=== PATIENT | female | born 1980 | race Caucasian/White ===

== ENCOUNTER 2017-10-13 14:48 | Inpatient (IN) | payer OTHER ==
[2017-10-13 15:28] VITALS: BMI 39.6
[2017-10-13] MEDS ORDERED: CITRIC ACID/SODIUM CITRATE 30 ML UNIT-DOSE CUP PO ONE (16:06)
[2017-10-13] MEDS: ELECTROLYTE-148 SOLN 1,000 ML IV SCH (16:15)
[2017-10-13] MEDS ORDERED: ELECTROLYTE-148 SOLN 1,000 ML IV SCH (16:15)
[2017-10-13 17:40] LABS: BASO % 0.4 % (0-2.0); EOS % 2.4 % (0-4.5); HEMATOCRIT 37.7 % (32.4-45.2); HEMOGLOBIN 12.9 GM/dL (10.7-15.3); LYMPH % 21.6 % (8-40); MCH 31.5 pg (25.7-33.7); MCHC 34.2 g/dl (32.0-36.0); MEAN PLT VOLUME 8.1 fl (7.5-11.1); MONO % 8.1 % (3.8-10.2); NEUT % 67.5 % (42.8-82.8); PLATELET COUNT 263 K/MM3 (134-434); RBC 4.09 M/mm3 (3.60-5.2); RDW 14.6 % (11.6-15.6); WHITE BLOOD COUNT 8.3 K/mm3 (4.0-10.0)
[2017-10-13 17:58] LABS: INR 0.96 (0.82-1.09); PROTHROMBIN TIME (PATIENT) 10.8 SEC (9.98-11.88)
[2017-10-13 18:00] LABS: ACTIVATED PTT 29.2 SECONDS (26.9-34.4)
[2017-10-13 18:10] LABS: ANION GAP 15 (8-16); BLOOD UREA NITROGEN 9 mg/dL (7-18); CALCIUM 8.9 mg/dL (8.5-10.1); CHLORIDE 104 mmol/L (98-107); CO2 20 mmol/L (21-32); CREATININE 0.5 mg/dL (0.55-1.02); GLUCOSE,RANDOM 86 mg/dL (74-106); POTASSIUM 4.4 mmol/L (3.5-5.1); SODIUM 139 mmol/L (136-145)
[2017-10-13] MEDS ORDERED: ceFAZolin SODIUM 1 GM VIAL ONE (18:27)
--- NOTE | 2017-10-13 18:27 | HP ---
Past Medical History - Primary Care Physician PCP:: Cassandra Hanson - Admission Chief Complaint: Previous Section. abdominal pain History of Present Illness: 37 yo EDC 11/05/17 EGA with c/o previous Section History Source: Patient - Past Medical History ...: 7 ...Para: 3 ...Term: 3 ...: 0 ...Spon : 3 ...Induced : 0 ...Multiple Gestation: 0 ...LMP: 01/28/17 ...EDC by Dates: 11/05/17 - Past Surgical History Past Surgical History: Yes: Hx Myomectomy: No Hx Transabdominal Cerclage: No - Smoking History Smoking history: Never smoked Have you smoked in the past 12 months: No - Alcohol/Substance Use Hx Alcohol Use: No History of Substance Use: reports: None - Social History Usual Living Arrangement: Yes: With Spouse History of Recent Travel: No Home Medications - Allergies Allergies/Adverse Reactions: Allergies Allergy/AdvReac Type Severity Reaction Status Date / Time No Known Allergies Allergy Verified 10/13/17 15:13 - Home Medications Home Medications: Ambulatory Orders Pnv No.95/Ferrous Fum/Folic AC [ Vitamin Tablet] 1 each PO DAILY Glyburide/Metformin HCl [Glyburide-Metformin 2.5-500 mg] 5 mg PO HS 10/13/17 Review of Systems - Review of Systems Constitutional: reports: No Symptoms Eyes: reports: No Symptoms HENT: reports: No Symptoms Neck: reports: No Symptoms Cardiovascular: reports: No Symptoms Respiratory: reports: No Symptoms Gastrointestinal: reports: Abdominal Pain Genitourinary: reports: No Symptoms Breasts: reports: No Symptoms Reported Musculoskeletal: reports: No Symptoms Integumentary: reports: No Symptoms Neurological: reports: No Symptoms Endocrine: reports: No Symptoms Hematology/Lymphatic: reports: No Symptoms Psychiatric: reports: No Symptoms Physical Exam - Maternity Vital Signs: Vital Signs Temperature 98.0 F 10/13/17 15:15 Pulse Rate 96 H 10/13/17 15:15 Respiratory Rate 20 10/13/17 15:15 Blood Pressure 117/74 10/13/17 15:15 O2 Sat by Pulse Oximetry (%) Constitutional: Yes: Well Nourished, No Distress Neck: Yes: WNL Cardiovascular: Yes: WNL Lungs: Clear to auscultation Breast(s): Yes: WNL - Abdominal Exam/OB Number of Fetuses: Single Presentation: Vertex Contractions: Yes Monitor Mode: External Category: I Accelerations: Non-Uniform Decelerations: None - Vaginal Exam/OB Vaginal Bleediing: No Dilatation (cm): 2 cm Effacement (%): 80 Amniotic Membrane Status: Intact Presentation: Vertex/Position - Physical Exam Musculoskeletal: Yes: WNL Extremities: Yes: WNL Edema: No Psychiatric: Yes: WNL, Alert, Oriented - Labs Lab Results: CBC, BMP 10/13/17 17:05 Hemorrhage Risk Assessment - Risk Factors Medium Risk Factors: Yes: Prior , uterine surgery,or multiple laparotomies Risk Score: 1 Risk Level: Medium Risk Problem List - Problems (1) Previous delivery affecting , antepartum Code(s): O34.219 - MATERNAL CARE FOR UNSP TYPE SCAR FROM PREVIOUS DEL (2) labor in third trimester Code(s): O60.03 - LABOR WITHOUT DELIVERY, THIRD TRIMESTER Qualifiers: labor delivery status: without delivery Qualified Code(s): O60.03 - labor without delivery, third trimester Assessment/Plan IUP at 36.6 weeks previous Section Abdominal pain Plan IV hydration Admit for observation
[2017-10-13] MEDS: CEFAZOLIN 2 GM/D5W 2 GM/50 ML ML IVPB SCH (18:30)
[2017-10-13 19:41] LABS: URINE APPEARANCE CLEAR; URINE BILIRUBIN NEGATIVE (<2.0 mg/dL); URINE COLOR YELLOW; URINE GLUCOSE (UA) NEGATIVE (NEGATIVE); URINE KETONE 1+ (NEGATIVE); URINE LEUK ESTERASE NEGATIVE (NEGATIVE); URINE NITRITE NEGATIVE (NEGATIVE); URINE PROTEIN NEGATIVE (NEGATIVE); URINE UROBILINOGEN NEGATIVE mg/dL (0.2-1.0)
[2017-10-13 20:13] LABS: EPI CELLS RARE /HPF (FEW); URINE MUCUS FEW
[2017-10-13] MEDS ORDERED: ELECTROLYTE-148 SOLN 1,000 ML IV ONE (20:15)
[2017-10-14] MEDS ORDERED: TERBUTALINE SULFATE 1 MG/1 ML VIAL SQ ONE (00:33)
[2017-10-14] MEDS: CEFAZOLIN 2 GM/D5W 2 GM/50 ML ML IVPB SCH ×3 (02:26→17:55)
[2017-10-14] MEDS ORDERED: ceFAZolin SODIUM 1 GM VIAL ONE (02:28)
[2017-10-14] MEDS ORDERED: ELECTROLYTE-148 SOLN 1,000 ML IV ONE (06:00)
[2017-10-14] MEDS ORDERED: D5-LR+20 MEQ KCL - 20 MEQ/1,000 ML INFUS.BAG IV ONE (06:00)
--- NOTE | 2017-10-14 07:45 | PN ---
Ante-Partal Exam - Subjective Subjective: Pt with pain an desires CS + contractions at 37 weeks Vital Signs: Vital Signs Temperature 97.4 F L 10/14/17 05:00 Pulse Rate 98 H 10/14/17 05:00 Respiratory Rate 18 10/14/17 05:00 Blood Pressure 100/58 10/14/17 05:00 O2 Sat by Pulse Oximetry (%) Bleeding: No Headache: No Visual changes: No Right upper quadrant pain: No - Contractions Contractions: Yes Regularity: Irregular Intensity: Moderate Monitor Mode: External - Exam during Labor Variability: Moderate Heart Rate Location: [facility] Category: I Monitor Accelerations: Present Monitor Decelerations: None Exam: Vaginal Dilatation (cm): 2 Effacement (%): 80 Amniotic Membrane Status: Intact Presentation: Vertex Station: -1 - Intrapartum Hemorrhage Risk Risk Score: 1 Risk Level: Medium Risk - Assessment/Plan Assessment/Plan: Active lLabor at 37 week Previious section Plan Repeat CS
[2017-10-14] MEDS ORDERED: OXYTOCIN 20 UNITS in 0.9% NS 20 UNIT/1,000 ML INFUS.BAG IV ONE (07:50)
[2017-10-14] MEDS ORDERED: morphine SULFATE/Preservative Free 0.5 MG/ML (1cc Syringe) ONE (07:54)
[2017-10-14] MEDS ORDERED: BUPIVACAINE 0.75% IN DEXTROSE/PF 2ML AMPULE NR ONE (07:55)
[2017-10-14] MEDS ORDERED: OXYTOCIN 10 UNITS/ML VIAL ONE (08:34)
[2017-10-14] MEDS ORDERED: KETOROLAC TROMETHAMINE 30 MG/1 ML VIAL ONE (08:50)
[2017-10-14] MEDS ORDERED: IBUPROFEN 800 MG/8 ML IJ IVPB PRN (09:17)
[2017-10-14] MEDS ORDERED: METHYLERGONOVINE MALEATE 0.2 MG/1 ML AMP IM PRN (09:17)
[2017-10-14] MEDS ORDERED: OXYTOCIN 20 UNITS in 0.9% NS 20 UNIT/1,000 ML INFUS.BAG IV SCH (09:30)
[2017-10-14] MEDS ORDERED: ONDANSETRON 4 MG/2 ML VIAL IVPUSH PRN (09:33)
[2017-10-14 09:53] LABS: VENOUS PC02 64.1 mmHg (38-52); VENOUS PH 7.24 (7.32-7.42)
[2017-10-14 09:54] LABS: VENOUS PO2 10.5 mmHg (28-48)
[2017-10-14 09:57] LABS: ARTERIAL BLD GAS O2 SATURATION 44.3 % (90-98.9); ARTERIAL BLOOD GAS BASE EXCESS -1.8 meq/l (-2-2); ARTERIAL BLOOD GAS PCO2 49.5 mmHg (35-45); ARTERIAL BLOOD GAS pH 7.32 (7.35-7.45)
[2017-10-14 10:03] LABS: ARTERIAL BLOOD GAS PO2 22.8 mmHg (80-100)
[2017-10-14] MEDS ORDERED: TUBERCULIN PPD 5 TU/0.1ML SYRINGE (IN PATIENT USE ONLY) ID ONE (14:00)
--- NOTE | 2017-10-15 06:41 | OP ---
Operative Note - Note: Operative Date: 10/15/17 Pre-Operative Diagnosis: Previous CS. IUP at 37 week. Active labor Operation: Repeat low transverse Section Findings: live female infant Post-Operative Diagnosis: Same as Pre-op Surgeon: Cassandra Hanson Horticultural Specialty Grower: Rufus Welch Anesthesia: Spinal Estimated Blood Loss (mls): 600 Operative Report Dictated: Yes
--- NOTE | 2017-10-15 06:43 | PN ---
Progress Note (SOAP) - Subjective Chief Complaint: Pt doing well no flatus - Current Medications Current Medications: Active Medications Acetaminophen (Tylenol -) 650 mg PO Q4H PRN PRN Reason: FEVER Bisacodyl (Dulcolax Suppository -) 10 mg RC PRN PRN PRN Reason: CONSTIPATION Diphenhydramine HCl (Benadryl Injection -) 25 mg IVPUSH Q4H PRN PRN Reason: Pruritis Diphtheria/Tetanus/Acell Pertussis (Boostrix -) 0.5 ml IM .ONCE ONE Stop: 10/15/17 10:01 Parenteral Electrolytes (Plasma-Lyte 148 -) 1,000 mls @ 125 mls/hr IV ASDIR [facility] Last Admin: 10/13/17 16:15 Dose: 125 mls/hr Parenteral Electrolytes (Plasma-Lyte 148 -) 1,000 mls @ 125 mls/hr IV ASDIR [facility] Oxytocin/Sodium Chloride (Normal Saline+20 Units Oxytocin -) 20 unit in 1,000 mls @ 125 mls/hr IV ASDIR [facility] Last Admin: 10/14/17 13:45 Dose: 125 mls/hr Ibuprofen (Caldolor Injection -) 800 mg IVPB Q8H PRN PRN Reason: FEVER Last Admin: 10/15/17 05:36 Dose: 800 mg Ibuprofen (Motrin -) 600 mg PO Q4H PRN PRN Reason: PAIN LEVEL 1 - 3 Influenza Virus Vaccine Quadrival (Flulaval Quad [id number]) 60 mcg IM .ONCE ONE Stop: 10/15/17 10:01 Methylergonovine Maleate (Methergine Injection -) 0.2 mg IM Q4H PRN PRN Reason: Excessive Bleeding (L&D) Ondansetron HCl (Zofran Injection) 4 mg IVPUSH Q4H PRN PRN Reason: NAUSEA Oxycodone HCl (Roxicodone -) 5 mg PO Q4H PRN PRN Reason: PAIN LEVEL 4 - 6 Oxycodone HCl (Roxicodone -) 10 mg PO Q4H PRN PRN Reason: PAIN LEVEL 7 - 10 Multivit/Folic Acid/Iron ( Vitamins (Sjr) -) 1 tab PO DAILY HELENA Simethicone (Mylicon -) 80 mg PO Q4H PRN PRN Reason: GAS - Objective Vital Signs: Vital Signs Temperature 98.7 F 10/15/17 04:00 Pulse Rate 82 10/15/17 04:00 Respiratory Rate 18 10/15/17 06:00 Blood Pressure 97/57 10/15/17 04:00 O2 Sat by Pulse Oximetry (%) 99 10/14/17 21:00 Constitutional: Yes: Well Nourished, No Distress Neck: Yes: WNL, Supple Gastrointestinal: Yes: WNL, Soft, Abdomen, Obese ....Post : Yes: Uterus firm, Uterus non-tender Breast(s): Yes: WNL Musculoskeletal: Yes: WNL Extremities: Yes: WNL Edema: No Wound/Incision: Yes: Clean/Dry, Well Approximated, Steri Strips, Dressing Removed Neurological: Yes: WNL, Alert, Oriented Labs Lab Results: CBC, BMP 10/13/17 17:05 10/13/17 17:05 Problem List - Problems (1) Previous delivery affecting , antepartum Code(s): O34.219 - MATERNAL CARE FOR UNSP TYPE SCAR FROM PREVIOUS DEL (2) labor in third trimester Code(s): O60.03 - LABOR WITHOUT DELIVERY, THIRD TRIMESTER Qualifiers: labor delivery status: without delivery Qualified Code(s): O60.03 - labor without delivery, third trimester Assessment/Plan POD 1 SP CS plan OOB clears continue present management
[2017-10-15 08:26] LABS: BASO % 0.4 % (0-2.0); EOS % 3.2 % (0-4.5); HEMATOCRIT 35.5 % (32.4-45.2); HEMOGLOBIN 12.2 GM/dL (10.7-15.3); LYMPH % 13.1 % (8-40); MCH 31.7 pg (25.7-33.7); MCHC 34.5 g/dl (32.0-36.0); MEAN PLT VOLUME 7.8 fl (7.5-11.1); MONO % 6.2 % (3.8-10.2); NEUT % 77.1 % (42.8-82.8); PLATELET COUNT 233 K/MM3 (134-434); RBC 3.86 M/mm3 (3.60-5.2); RDW 15.1 % (11.6-15.6)
--- NOTE | 2017-10-15 09:01 | PN ---
Progress Note, Physician Chief Complaint: Pt. ambulating and voiding, pain controlled, no anesthesia complaints. - Current Medication List Current Medications: Active Medications Acetaminophen (Tylenol -) 650 mg PO Q4H PRN PRN Reason: FEVER Bisacodyl (Dulcolax Suppository -) 10 mg RC PRN PRN PRN Reason: CONSTIPATION Diphenhydramine HCl (Benadryl Injection -) 25 mg IVPUSH Q4H PRN PRN Reason: Pruritis Diphtheria/Tetanus/Acell Pertussis (Boostrix -) 0.5 ml IM .ONCE ONE Stop: 10/15/17 10:01 Parenteral Electrolytes (Plasma-Lyte 148 -) 1,000 mls @ 125 mls/hr IV ASDIR [facility] Last Admin: 10/13/17 16:15 Dose: 125 mls/hr Oxytocin/Sodium Chloride (Normal Saline+20 Units Oxytocin -) 20 unit in 1,000 mls @ 125 mls/hr IV ASDIR [facility] Last Admin: 10/14/17 13:45 Dose: 125 mls/hr Ibuprofen (Caldolor Injection -) 800 mg IVPB Q8H PRN PRN Reason: FEVER Last Admin: 10/15/17 05:36 Dose: 800 mg Ibuprofen (Motrin -) 600 mg PO Q4H PRN PRN Reason: PAIN LEVEL 1 - 3 Influenza Virus Vaccine Quadrival (Flulaval Quad [id number]) 60 mcg IM .ONCE ONE Stop: 10/15/17 10:01 Methylergonovine Maleate (Methergine Injection -) 0.2 mg IM Q4H PRN PRN Reason: Excessive Bleeding (L&D) Ondansetron HCl (Zofran Injection) 4 mg IVPUSH Q4H PRN PRN Reason: NAUSEA Oxycodone HCl (Roxicodone -) 5 mg PO Q4H PRN PRN Reason: PAIN LEVEL 4 - 6 Oxycodone HCl (Roxicodone -) 10 mg PO Q4H PRN PRN Reason: PAIN LEVEL 7 - 10 Multivit/Folic Acid/Iron ( Vitamins (Sjr) -) 1 tab PO DAILY HELENA Simethicone (Mylicon -) 80 mg PO Q4H PRN PRN Reason: GAS - Objective Vital Signs: Vital Signs Temperature 98.7 F 10/15/17 04:00 Pulse Rate 82 10/15/17 04:00 Respiratory Rate 18 10/15/17 06:00 Blood Pressure 97/57 10/15/17 04:00 O2 Sat by Pulse Oximetry (%) 99 10/14/17 21:00 Constitutional: Yes: Well Nourished, No Distress, Calm Musculoskeletal: Yes: WNL Neurological: Yes: WNL, Alert, Oriented ...Motor Strength: WNL Labs: CBC, BMP 10/15/17 06:30 10/13/17 17:05 INR, PTT INR 0.96 (0.82-1.09) 10/13/17 17:05 Assessment/Plan POD#1 s/p under spinal with duramorph. Doing well. D/C from anesthesia care.
[2017-10-15] MEDS: PRENATAL VITAMINS W/ FOLIC ACID TABLET (FP) PO SCH (09:13)
[2017-10-15] MEDS ORDERED: BISACODYL 10 MG SUPP.RECT RC PRN (09:17)
[2017-10-15] MEDS ORDERED: DIPHTH,PERTUSS(ACELL),TET 0.5 ML DISP.SYRIN IM ONE (10:00)
[2017-10-15] MEDS: FLU VACCINE QUAD 60 MCG/0.5 ML (MDV 17-18) IM ONE ×2 (12:38→12:39)
[2017-10-15] MEDS: oxyCODONE HCL 5 MG TABLET PO PRN ×2 (14:41→20:58)
[2017-10-15] MEDS: SIMETHICONE 80 MG TAB.CHEW (FP) PO PRN ×2 (14:41→20:58)
[2017-10-15] MEDS: ACETAMINOPHEN 325 MG TABLET (FP) PO PRN ×2 (14:42→20:58)
[2017-10-16] MEDS: IBUPROFEN 600 MG TABLET (FP) PO PRN ×3 (00:10→19:44)
[2017-10-16] MEDS: oxyCODONE HCL 5 MG TABLET PO PRN ×3 (00:48→19:45)
--- NOTE | 2017-10-16 04:54 | PN ---
Post Progress Note - Subjective Subjective: 37 yo Para 4 status post repeat , seen and evaluated. She c/o incision pain. Post Day: 1 Type of Delivery: Repeat C/S Vital Signs: Vital Signs Temperature 98.9 F 10/15/17 21:58 Pulse Rate 92 H 10/15/17 21:58 Respiratory Rate 18 10/15/17 21:58 Blood Pressure 123/63 10/15/17 21:58 O2 Sat by Pulse Oximetry (%) 99 10/14/17 21:00 Breast Exam: Yes: Soft Uterus: Yes: Fundus Firm Incision: Yes: Other (Steri strips in place) Abdomen/GI: Yes: Abdomen soft, Tolerating PO Lochia: Yes: Rubra Lochia, amount: Small Extremities: Yes: Calves non-tender Perineum: Yes: Intact Activity: Ambulating - Labs Labs: CBC WBC 10.0 K/mm3 (4.0-10.0) 10/15/17 06:30 RBC 3.86 M/mm3 (3.60-5.2) 10/15/17 06:30 Hgb 12.2 GM/dL (10.7-15.3) 10/15/17 06:30 Hct 35.5 % (32.4-45.2) 10/15/17 06:30 MCV 92.0 fl (80-96) 10/15/17 06:30 MCH 31.7 pg (25.7-33.7) 10/15/17 06:30 MCHC 34.5 g/dl (32.0-36.0) 10/15/17 06:30 RDW 15.1 % (11.6-15.6) 10/15/17 06:30 Plt Count 233 K/MM3 (134-434) 10/15/17 06:30 MPV 7.8 fl (7.5-11.1) 10/15/17 06:30 Neutrophils % 77.1 % (42.8-82.8) 10/15/17 06:30 Lymphocytes % 13.1 % (8-40) D 10/15/17 06:30 Monocytes % 6.2 % (3.8-10.2) 10/15/17 06:30 Eosinophils % 3.2 % (0-4.5) 10/15/17 06:30 Basophils % 0.4 % (0-2.0) 10/15/17 06:30 Problem List - Problems (1) Status post repeat low transverse section Code(s): Z98.891 - HISTORY OF UTERINE SCAR FROM PREVIOUS SURGERY Assessment/Plan Status post repeat Stable Ambulation Analgesia as needed Continue routine post op care
[2017-10-16] MEDS: SIMETHICONE 80 MG TAB.CHEW (FP) PO PRN ×2 (09:37→19:44)
[2017-10-16] MEDS: PRENATAL VITAMINS W/ FOLIC ACID TABLET (FP) PO SCH (09:37)
[2017-10-17] MEDS: IBUPROFEN 600 MG TABLET (FP) PO PRN ×2 (04:21→16:00)
[2017-10-17] MEDS: oxyCODONE HCL 5 MG TABLET PO PRN ×3 (04:21→22:17)
[2017-10-17] MEDS: SIMETHICONE 80 MG TAB.CHEW (FP) PO PRN ×3 (04:22→22:17)
--- NOTE | 2017-10-17 07:14 | PN ---
Progress Note (SOAP) - Subjective Chief Complaint: Pt doing well but has pain does not desire to go home no flatus - Current Medications Current Medications: Active Medications Acetaminophen (Tylenol -) 650 mg PO Q4H PRN PRN Reason: FEVER Last Admin: 10/15/17 20:58 Dose: 650 mg Bisacodyl (Dulcolax Suppository -) 10 mg RC PRN PRN PRN Reason: CONSTIPATION Diphenhydramine HCl (Benadryl Injection -) 25 mg IVPUSH Q4H PRN PRN Reason: Pruritis Parenteral Electrolytes (Plasma-Lyte 148 -) 1,000 mls @ 125 mls/hr IV [facility]IR [facility] Last Admin: 10/13/17 16:15 Dose: 125 mls/hr Oxytocin/Sodium Chloride (Normal Saline+20 Units Oxytocin -) 20 unit in 1,000 mls @ 125 mls/hr IV ASDIR [facility] Last Admin: 10/14/17 13:45 Dose: 125 mls/hr Ibuprofen (Caldolor Injection -) 800 mg IVPB Q8H PRN PRN Reason: FEVER Last Admin: 10/15/17 05:36 Dose: 800 mg Ibuprofen (Motrin -) 600 mg PO Q4H PRN PRN Reason: PAIN LEVEL 1 - 3 Last Admin: 10/17/17 04:21 Dose: 600 mg Methylergonovine Maleate (Methergine Injection -) 0.2 mg IM Q4H PRN PRN Reason: Excessive Bleeding (L&D) Ondansetron HCl (Zofran Injection) 4 mg IVPUSH Q4H PRN PRN Reason: NAUSEA Oxycodone HCl (Roxicodone -) 5 mg PO Q4H PRN PRN Reason: PAIN LEVEL 4 - 6 Last Admin: 10/15/17 20:58 Dose: 5 mg Oxycodone HCl (Roxicodone -) 10 mg PO Q4H PRN PRN Reason: PAIN LEVEL 7 - 10 Last Admin: 10/17/17 04:21 Dose: 10 mg Multivit/Folic Acid/Iron ( Vitamins (Sjr) -) 1 tab PO DAILY HELENA Last Admin: 10/16/17 09:37 Dose: 1 tab Simethicone (Mylicon -) 80 mg PO Q4H PRN PRN Reason: GAS Last Admin: 10/17/17 04:22 Dose: 80 mg - Objective Vital Signs: Vital Signs Temperature 98.6 F 10/16/17 21:35 Pulse Rate 83 10/16/17 21:35 Respiratory Rate 20 10/16/17 21:35 Blood Pressure 109/64 10/16/17 21:35 O2 Sat by Pulse Oximetry (%) 99 10/14/17 21:00 Constitutional: Yes: Well Nourished, No Distress Neck: Yes: WNL, Supple Cardiovascular: Yes: WNL Respiratory: Yes: WNL Gastrointestinal: Yes: WNL ...Rectal Exam: Yes: WNL Genitourinary: Yes: WNL ....Post : Yes: Uterus firm, Uterus non-tender Breast(s): Yes: WNL Musculoskeletal: Yes: WNL Extremities: Yes: WNL Edema: No Wound/Incision: Yes: Clean/Dry, Well Approximated, Open to air Neurological: Yes: WNL, Alert, Oriented Labs Lab Results: CBC, BMP 10/15/17 06:30 10/13/17 17:05 Problem List - Problems (1) Previous delivery affecting , antepartum Code(s): O34.219 - MATERNAL CARE FOR UNSP TYPE SCAR FROM PREVIOUS DEL (2) labor in third trimester Code(s): O60.03 - LABOR WITHOUT DELIVERY, THIRD TRIMESTER Qualifiers: labor delivery status: without delivery Qualified Code(s): O60.03 - labor without delivery, third trimester Assessment/Plan POD 3 Pt with pain unable to go home today SP CS plan OOB clears continue present management
[2017-10-17 08:11] LABS: BASO % 0.8 % (0-2.0); EOS % 5.4 % (0-4.5); HEMATOCRIT 34.8 % (32.4-45.2); HEMOGLOBIN 11.8 GM/dL (10.7-15.3); LYMPH % 20.3 % (8-40); MCH 31.4 pg (25.7-33.7); MCHC 33.9 g/dl (32.0-36.0); MEAN CELL VOLUME 92.7 fl (80-96); MEAN PLT VOLUME 7.6 fl (7.5-11.1); MONO % 5.8 % (3.8-10.2); NEUT % 67.7 % (42.8-82.8); PLATELET COUNT 259 K/MM3 (134-434); RBC 3.75 M/mm3 (3.60-5.2); RDW 15.3 % (11.6-15.6); WHITE BLOOD COUNT 8.3 K/mm3 (4.0-10.0)
[2017-10-17] MEDS: PRENATAL VITAMINS W/ FOLIC ACID TABLET (FP) PO SCH (09:48)
[2017-10-17] MEDS: ELECTROLYTE-148 SOLN 1,000 ML IV SCH (16:56)
[2017-10-18 00:08] VITALS: TEMP 98
[2017-10-18] MEDS: oxyCODONE HCL 5 MG TABLET PO PRN (04:22)
[2017-10-18] MEDS: SIMETHICONE 80 MG TAB.CHEW (FP) PO PRN (04:22)
[2017-10-18] MEDS: IBUPROFEN 600 MG TABLET (FP) PO PRN (04:23)
[2017-10-18] MEDS: PRENATAL VITAMINS W/ FOLIC ACID TABLET (FP) PO SCH (10:02)
[2017-10-18 11:21] VITALS: BP 105/71; PULSE 72
--- NOTE | 2017-10-24 08:52 | PATH ---
Surgical Pathology Report Patient Name: GRETEL CORONEL Med. Rec. 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 Specimen(s) Received A: PLACENTA B: RIGHT FALLOPIAN TUBE C: LEFT FALLOPIAN TUBE Clinical History 37 weeks for repeat section Final Diagnosis A. PLACENTA, DELIVERY: FOCALLY DISRUPTED THIRD TRIMESTER PLACENTA WITH SUBCHORIONIC AND INTERVILLOUS FIBRIN DEPOSITION, THREE VESSEL UMBILICAL CORD AND UNREMARKABLE PLACENTAL MEMBRANES. B. RIGHT FALLOPIAN TUBE, SALPINGECTOMY: FULL LUMINAL PORTION OF UNREMARKABLE FALLOPIAN TUBE, INCLUDING FIMBRIATED END. C. LEFT FALLOPIAN TUBE, SALPINGECTOMY: FULL LUMINAL PORTION OF UNREMARKABLE FALLOPIAN TUBE, INCLUDING FIMBRIATED END. Electronically Signed Krishna Cunningham M.D. Gross Description A. The specimen is received fresh labeled placenta and is a 408 gram, 14.5 x 13 x 4 cm. placenta with attached membranes and umbilical cord. The attached membranes are glistening and translucent and insert marginally. The umbilical cord measures 11 cm. in length and averages 1.2 cm. in diameter. The cord inserts eccentrically, 2.5 cm. to the nearest margin. No true knots or strictures are identified. Cut surface of the umbilical cord reveals 3 vessels. The surface is smith-blue with minimal fibrin deposition and appropriate caliber vessels. The maternal surface is red-brown with focal defects. Sectioning reveals red-brown, spongy parenchyma. No lesions are identified. Communications Billing Analyst sections are submitted in three cassettes as follows: 1- membrane rolls and umbilical cord; 2-3- full thickness sections of placenta. B. Received fresh labelled "right salpingectomy" is a 6.5 cm long by 0.9 cm in diameter portion of tissue consistent with a portion of fallopian tube. The fimbriated end is present No focal lesions are identified. Communications Billing Analyst sections are submitted in one cassette C. Received fresh labelled "left salpingectomy" is a 6.5 cm long by 0.9 cm in diameter portion of tissue consistent with a portion of fallopian tube. The fimbriated end is present No focal lesions are identified. Communications Billing Analyst sections are submitted in one cassette [facility]/10/20/2017 [facility]/10/20/2017
--- NOTE | 2017-10-24 18:15 | DS ---
Physical Exam-PORTFOLIO MGR Vital Signs: Vital Signs Temperature 98.0 F 10/17/17 22:00 Pulse Rate 72 10/18/17 10:00 Respiratory Rate 18 10/18/17 10:00 Blood Pressure 105/71 10/18/17 10:00 O2 Sat by Pulse Oximetry (%) 99 10/14/17 21:00 Constitutional: Yes: Well Nourished, No Distress Neck: Yes: WNL Respiratory: Yes: WNL Gastrointestinal: Yes: WNL, Soft, Abdomen, Obese ....Post : Yes: Uterus firm, Uterus non-tender Breast(s): Yes: WNL Musculoskeletal: Yes: WNL Extremities: Yes: WNL Edema: No Wound/Incision: Yes: Clean/Dry, Well Approximated, Steri Strips Psychiatric: Yes: WNL, Alert, Oriented Labs: CBC, BMP 10/17/17 07:15 10/13/17 17:05 Delivery - Delivery Section: Low Flap Transverse Type of Anesthesia: Spinal Episiotomy/Laceration: None EBL (cc): 600 Delivery, Single - Stages of Labor Date of Delivery: 10/14/17 Time of Delivery: 08:31 Time Placenta Delivered: 08:32 Placenta: Yes: Spontaneous - Condition of Infant Digital Media Sales Consultant/Atmospheric Physics Professor Present: Yes Name: Ivania Suero Infant Gender: Female Weight: 7 lb 2 oz Position: OP Total Hours ROM (Hrs/Mins): 0/2 - 1 Minute Total Score: 9 5 Minutes Total Score: 9 - Feeding Plan Initial Plan: Elected not to breastfeed exclusively throughout hospitalization Discharge Summary Reason For Visit: labor Previous Section Procedures: Principal: Repeat low transverse Section Hospital Course: Uncomplicated Condition: Good - Instructions Diet, Activity, Other Instructions: Physical activity Resume your normal everyday activity as tolerated no heavy lifting or exercise until seen by your surgeon. You may walk unlimited joao of and climb stairs. You may resume driving the car when you feel safe and comfortable behind the wheel. No sexual activity as instructed. Wound care If you have a bandage, leave it on, and keep dry for 48-72 hours. After that time discard the outer bandage. If they are tapes on the skin under the out of bandage leave them in place. They will peel off in the next 7 to 10 days. Do Not Peel them off. You may shower the day after surgery. If there are tapes present on the skin, you may shower over them. Diet There are no dietary restrictions. Eat healthy, high-fiber foods. Drink 6 to 8 glasses of liquid each day. This will assist in keeping your bowels are regular. Pain management You may take Tylenol or acetaminophen or Ibuprofen (for example, Motrin, Advil etc.) from my pain prescription medication is ordered should be taken as prescribed for moderate to severe pain. Call MD for any of the following: Severe pain not relieved by medication Fever of 101 or higher Excessive bleeding or drainage on dressing Inability to urinate Referrals: Cassandra Hanson MD [Staff Physician] - Disposition: HOME - Home Medications Comprehensive Discharge Medication List: Ambulatory Orders Pnv No.95/Ferrous Fum/Folic AC [ Vitamin Tablet] 1 each PO DAILY Glyburide/Metformin HCl [Glyburide-Metformin 2.5-500 mg] 5 mg PO HS 10/13/17 Oxycodone HCl/Acetaminophen [Percocet 5-325 mg Tablet] 1 - 2 tab PO Q6H #20 tab MDD 6 10/17/17
== END 2017-10-18 13:30 | disposition home or self-care (01) | DRG 540 ==
LOC: JLDR 14:48 → J3W 10-14 11:20
PROVIDERS: ADMIT Obstetrics & Gynecology; ATTEND Obstetrics & Gynecology
PROC: 10D00Z1 Extraction of Products of Conception, Low, Open Approach (ICD-10-PCS; principal; 2017-10-15)
DX: O34.219 Maternal care for unspecified type scar from previous cesarean delivery (principal); Z3A.37 37 weeks gestation of pregnancy; Z37.0 Single live birth
CPT/HCPCS: 36415; 36600; 71046-TC-FY; 80048; 81003; 81015; 82803; 82962; 85025; 85610; 85730; 86593; 86850; 86900; 86901; 87086; 88302-TC; 88307-TC; 90688; 90715; G0008